=== PATIENT | male | born 1985 | race Caucasian/White ===

== ENCOUNTER 2017-10-17 19:18 | Emergency (ER) | payer SELFPAY ==
[~2017-10-17] VITALS: Ht 180.3 cm; Wt 88.6 kg
[2017-10-17] MEDS ORDERED: CEPHALEXIN500 M1 PO (19:42)
[2017-10-17 19:49] VITALS: BP 139/81
== END 2017-10-17 19:49 | disposition home or self-care (01) ==
LOC: ED 19:18
DX: I89.1 Lymphangitis (principal); L30.1 Dyshidrosis [pompholyx]